=== PATIENT | female | born 1975 | race Caucasian/White ===

== ENCOUNTER 2024-02-20 14:30 | Inpatient (IN) | payer MEDICAID, OTHER ==
[2024-02-20] MEDS ORDERED: MAG HYDROX/AL HYDROX/SIMETH 355 ML BOTTLE PO PRN (15:12)
[2024-02-20] MEDS ORDERED: ACETAMINOPHEN TAB 325 MG TAB PO PRN (15:12)
[2024-02-20] MEDS ORDERED: LORazepam 2 MG/ML INJ IM PRN (15:12)
[2024-02-20] MEDS ORDERED: ZIPRASIDONE 20 MG VIAL IM PRN (15:12)
[2024-02-20] MEDS ORDERED: MAGNESIUM HYDROXIDE 2,400 MG/30 ML CUP PO PRN (15:12)
[2024-02-20] MEDS ORDERED: ZIPRASIDONE 20 MG CAP PO PRN (15:19)
[2024-02-20] MEDS: LORazepam 1 MG TAB PO PRN (21:55)
[2024-02-20] MEDS: traZODone HCL 50 MG TAB PO PRN (21:55)
[2024-02-20] MEDS: NICOTINE 14MG/24HR PATCH TRANSDERM SCH (23:46)
[2024-02-21 07:50] LABS: Basophils # (A) 0.1 k/uL (0-0.2); Basophils % (A) 1 %; Eosinophils # (A) 0.3 k/uL (0-0.7); Eosinophils % (A) 2 %; HCT 40.8 % (34.0-46.0); Lymphocytes # (A) 3.5 k/uL (1.0-4.8); Lymphocytes % (A) 24 %; MCH 25.2 pg (25.0-35.0); MCHC 31.9 g/dL (31.0-37.0); Mean Platelet Volume 6.4; Monocytes # (A) 0.5 k/uL (0-1.0); Monocytes % (A) 3 %; Neutrophils % (A) 69 %; Platelet Count 487 k/uL (150-450); RBC 5.17 m/uL (3.80-5.40); WBC 14.6 k/uL (3.8-10.6)
[2024-02-21 08:17] LABS: ALT 21 U/L (4-34); African American GFR (CKD) 86 (>60 ml/min/1.73 sqM); Anion Gap 8 mmol/L; Bilirubin, Delta 0.4 mg/dL (0.0-0.2); Bilirubin,Unconjugated 0.4 mg/dL (0.0-1.1); Blood Urea Nitrogen 11 mg/dL (7-17); Calcium 9.3 mg/dL (8.4-10.2); Carbon Dioxide 27 mmol/L (22-30); Chloride 101 mmol/L (98-107); Glucose 112 mg/dL (74-99); Non-African American GFR(CKD) 74 (>60 ml/min/1.73 sqM); Sodium 136 mmol/L (137-145)
[2024-02-21 08:19] LABS: AST 38 U/L (14-36); Albumin 4.5 g/dL (3.5-5.0); Alkaline Phosphatase 95 U/L (38-126); Potassium 5.1 mmol/L (3.5-5.1); Total Bilirubin 0.8 mg/dL (0.2-1.3); Total Protein 7.7 g/dL (6.3-8.2)
[2024-02-21] MEDS ORDERED: NICOTINE 14MG/24HR PATCH TRANSDERM SCH (09:00)
--- NOTE | 2024-02-21 09:29 | XR ---
EXAMINATION TYPE: XR chest 1V portable DATE OF EXAM: 02/21/2024 9:23 AM COMPARISON: None CLINICAL INDICATION: Female, 48 years old with history of shortness of breath; [facility] TECHNIQUE: XR chest 1V portable Frontal view of the chest. FINDINGS: Lungs/Pleura: There is no evidence of pleural effusion, focal consolidation, or pneumothorax. Pulmonary vascularity: Unremarkable. Heart/mediastinum: Cardiomediastinal silhouette is unremarkable. Musculoskeletal: No acute osseous pathology. IMPRESSION: No acute cardiopulmonary disease/process. [facility], , 02/21/2024 9:27 AM
[2024-02-21] MEDS: IBUPROFEN 600 MG TAB PO PRN (09:51)
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
[2024-02-21 15:40] LABS: Chol/HDL Ratio 5.06 Ratio; LDL Cholesterol,Calculated 124.3 mg/dL (0.0-131.0)
[2024-02-21] MEDS: hydrOXYzine pamoate 25 MG CAP PO PRN (18:50)
[2024-02-21] MEDS: MELATONIN 5 MG TABLET PO SCH (20:12)
[2024-02-21] MEDS: SERTRALINE 50 MG TAB PO SCH (20:12)
--- NOTE | 2024-02-22 08:50 | P.MDCNMH ---
History of Present Illness H&P Date: 02/21/24 This is a 48-year-old female who presented to the [facility] emergency department and sent over to here [facility] psychiatry for mental health admission and evaluation. Patient presented with intentional overdose of taking approximately 50-60 of her medications and initially went to the ICU at [facility]. Patient was given charcoal on admission there. On exam patient is lethargic although arousable and answering questions and following commands appropriately. Patient denies any chest pain, shortness of breath just reports feeling fatigued. Patient has been instructed and encouraged to follow with psychiatry and continue medication compliance along with group therapy sessions. Patient follows with Dr. Pan in the outpatient setting with a past medical history of anxiety and depression. Patient reports she smokes and denies any illicit drug use or alcohol use at this time. Patient does fatigue easily and falls asleep during conversation. REVIEW OF SYSTEMS: CONSTITUTIONAL: No fever, no malaise, reports of fatigue. HEENT: No recent visual problems or hearing problems. Denied any sore throat. CARDIOVASCULAR: No chest pain, orthopnea, PND, no palpitations, no syncope. PULMONARY: No shortness of breath, no cough, no hemoptysis. GASTROINTESTINAL: No diarrhea, no nausea, no vomiting, no abdominal pain. NEUROLOGICAL: No headaches, no weakness, no numbness. HEMATOLOGICAL: Denies any bleeding or petechiae. GENITOURINARY: Denies any burning micturition, frequency, or urgency. MUSCULOSKELETAL/RHEUMATOLOGICAL: Denies any joint pain, swelling, or any muscle pain. ENDOCRINE: Denies any polyuria or polydipsia. The rest of the 14-point review of systems is negative. PHYSICAL EXAMINATION: GENERAL: The patient is lethargic although arousable, alert and oriented x3, fatigued and falls asleep easily. Well developed, appears older than stated age, morbidly obese HEENT: Pupils are round and equally reacting to light. EOMI. No scleral icterus. No conjunctival pallor. Normocephalic, atraumatic. No pharyngeal erythema. No thyromegaly. CARDIOVASCULAR: S1 and S2 present. No murmurs, rubs, or gallops. PULMONARY: Diminished breath sounds bilaterally otherwise chest is clear to auscultation, no wheezing or crackles. ABDOMEN: Soft, obese. Nontender, nondistended, normoactive bowel sounds. No palpable organomegaly. MUSCULOSKELETAL: No joint swelling or deformity. EXTREMITIES: No cyanosis, clubbing, or pedal edema. NEUROLOGICAL: Gross neurological examination did not reveal any focal deficits. SKIN: No rashes. Assessment: Severe depression with suicidal ideation with intentional overdose Recent hospitalization at [facility] in ICU and received charcoal for intentional overdose of approximately 50 to 60 pills of her psychiatric medications Leukocytosis, no obvious source of infection, possibly reactive as patient was recently hospitalized and given charcoal prior to coming here Continued ongoing nicotine dependence Morbid obesity with a BMI of 42.6 Poor social support GI prophylaxis Full code Plan: Patient was sent here from [facility] for psychiatric evaluation and mental health admission. Patient with severe depression and suicidal ideation with intentional attempted overdose taking at least 50-60 of her psychiatric medications. Patient intentionally attempting to overdose and per nursing and medical reports, patient freaked out and notified her mother who called 911 and brought her to the hospital Poor historian and will need medical records from [facility] for further information Awaiting follow-up labs Patient with mild leukocytosis although appears slightly reactive as patient is afebrile with no reports of chest pain or shortness of breath, no recent sick contacts no pain or burning with urination and does not appear infectious at all Recommend follow-up labs and monitor WBC Thank you kindly for this consultation. Patient has been instructed to follow-up with Dr. Pan outpatient once discharged from [facility]. The impression and plan of care has been dictated by Dayami Amaro, Nurse Practitioner as directed. Dr. Suzanne MD I have performed a history and examination and MDM of this patient, discussed the same with the dictator, and agree with the dictator's assessment and plan as written ,documented as a scribe. Based on total visit time, I have performed more than 50% of the visit. Past Medical History Past Medical History: No Reported History History of Any Multi-Drug Resistant Organisms: None Reported Past Surgical History: No Surgical Hx Reported Past Anesthesia/Blood Transfusion Reactions: No Reported Reaction Past Psychological History: Depression Smoking Status: Vaper - Past Family History Father Family Medical History: Unable to Obtain Mother Family Medical History: Unable to Obtain Medications and Allergies Allergies Allergy/AdvReac Type Severity Reaction Status Date / Time Sulfa (Sulfonamide Allergy Unknown Verified 02/20/24 15:10 Antibiotics) Physical Exam Vitals: Vital Signs Temp Pulse Resp BP Pulse Ox 02/21/24 06:36 97.8 F 92 16 116/68 95 02/20/24 22:01 98.8 F 113 H 18 133/78 96 Intake and Output 02/20/24 02/21/24 02/21/24 22:59 06:59 14:59 Other: Weight 98.883 kg Cranial Nerve Examination - Cranial Nerves Cranial Nerve I- Olfactory: Intact Cranial Nerve II- Optic: Intact Cranial Nerve III- Oculomotor: Intact Cranial Nerve IV- Trochlear: Intact Cranial Nerve V- Trigeminal: Intact Cranial Nerve - Abducens: Intact Cranial Nerve VII- Facial: Intact Cranial Nerve VIII- Auditory: Intact Cranial Nerve IX- Glossopharyngeal: Intact Cranial Nerve X- Vagus: Intact Cranial Nerve XI- Accessory: Intact Cranial Nerve XII- Hypoglossal: Intact Results CBC & Chem 7: 02/21/24 07:27 02/21/24 07:27 Labs: Abnormal Lab Results - Last 24 Hours (Table) 02/21/24 02/21/24 Range/Units 07:27 07:27 WBC 14.6 H (3.8-10.6) k/uL MCV 79.0 L (80.0-100.0) fL Plt Count 487 H (150-450) k/uL Neutrophils # 10.0 H (1.3-7.7) k/uL Sodium 136 L (137-145) mmol/L Glucose 112 H (74-99) mg/dL Delta Bilirubin 0.4 H (0.0-0.2) mg/dL AST 38 H (14-36) U/L
--- NOTE | 2024-02-22 10:16 | P.PN ---
Progress Note - Text Progress Note Date: 02/22/24 Interval History: Patient was seen today for psychiatric follow-up. She remains disheveled in a ppearance. States that she showered last night. Claims that she only slept about 4 or 5 hours last night. We spoke about increasing the trazodone which she is okay with. She claims that she is feeling a bit labile lately and "orozco". States that she has never tried lithium and would be agreeable to try that today. Claims that she is not going to groups thus far, has been eating fairly. Claims her anxiety is mildly improving since yesterday. At this time is denying any suicidal homicidal ideations intent or plan, denying any auditory or visual hallucinations. Not reporting any side effects at this time. MENTAL STATUS EXAM: General Appearance: Patient appears to be overweight, wearing glasses, disheveled appearance stated age is alert, directable, and attempts to cooperate. Patient appears to have poor hygiene and grooming. Behavior: Patient is seated without any agitated behavior. Vague, improving mildly Speech: Patient's speech is fluent and nonpressured. [place], improving mildly Mood/Affect: Patient reports their mood is a little bit better, still anxious, affect is congruent and constricted. Suicidality/Homicidality: Patient denies having any homicidal ideation intent or plan. Denies any suicidal ideations intent or plan Perceptions: Patient denies any visual hallucinations and denies any auditory hallucinations Though content/process: [place], poverty of content. Memory and concentration: AOX3, grossly intact for the purposes of this session. Judgment and insight: Poor, improving mildly IMPRESSIONS: Suicide attempt by overdose of psychiatric medications Major depressive disorder, without psychotic features anxiety disorder unspecified nicotine dependence PLAN: -Patient is admitted under voluntary status to MHU for stabilization of psychiatric symptoms and safety. Patient has signed adult voluntary form and medication consent and is placed in patient's chart. -Medications : Zoloft 50 mg nightly for mood/anxiety, increase trazodone 100 mg nightly as needed for insomnia, Vistaril as needed for anxiety. Increase melatonin 10 mg qhs for sleep. Added lithium 150 mg twice daily for mood stabilization -Geodon PRN for agitation/aggression -NRT -nicotine patch -SW on board for discharge planning. Encourage patient to participate in groups to work on coping skills. Hopeful for discharge either Tuesday versus early next week once patient is more stable.
[2024-02-22] MEDS: LITHIUM CARBONATE 150 MG CAP PO SCH (12:55)
[2024-02-22] MEDS: MELATONIN 5 MG TABLET PO SCH (20:51)
[2024-02-22] MEDS: traZODone HCL 100 MG TAB PO PRN (20:52)
--- NOTE | 2024-02-23 11:49 | P.PN ---
Progress Note - Text Progress Note Date: 02/23/24 Interval History: Patient was seen today for psychiatric follow-up. Hygiene and grooming mildly improving since yesterday. She is claiming that she has tried to go to some groups. She states that she feels "off" and claims that it might be related to one of her new medications. She suspects that it could be either Vistaril or lithium. We spoke about decreasing lithium to a lower dose at nighttime which she is okay to try. Also claims that she did not sleep well last night. She also did state that she kept her nicotine patch on through the night which she will try to take off tonight. Claims that her appetite is fair at this time. At this time is denying any suicidal homicidal ideations intent or plan, denying any auditory or visual hallucinations. Has been taking her medications. MENTAL STATUS EXAM: General Appearance: Patient appears to be overweight, wearing glasses, dis heveled appearance stated age is alert, directable, and attempts to cooperate. Patient appears to have improving mildly hygiene and grooming. Behavior: Patient is seated without any agitated behavior. Mildly more pleasant today Speech: Patient's speech is fluent and nonpressured. [place], improving mildly Mood/Affect: Patient reports their mood is a little bit better, still anxious, affect is congruent and constricted. Improving mildly Suicidality/Homicidality: Patient denies having any homicidal ideation intent or plan. Denies any suicidal ideations intent or plan Perceptions: Patient denies any visual hallucinations and denies any auditory hallucinations Though content/process: [place], poverty of content. Memory and concentration: AOX3, grossly intact for the purposes of this session. Judgment and insight: Poor, improving mildly IMPRESSIONS: Suicide attempt by overdose of psychiatric medications Major depressive disorder, without psychotic features anxiety disorder unspecified nicotine dependence PLAN: -Patient is admitted under voluntary status to MHU for stabilization of psychiatric symptoms and safety. Patient has signed adult voluntary form and medication consent and is placed in patient's chart. -Medications : Increase Zoloft 100 mg nightly for mood/anxiety, trazodone 100 mg nightly as needed for insomnia, Vistaril as needed for anxiety. melatonin 10 mg qhs for sleep. Decrease lithium 150 mg nightly for mood stabilization. Resume BuSpar 15 mg twice daily for anxiety. -Geodon PRN for agitation/aggression -NRT -nicotine patch -SW on board for discharge planning. Encourage patient to participate in groups to work on coping skills. Hopeful for discharge early next week once patient is more stable.
[2024-02-23] MEDS: busPIRone HCl 5 MG TAB PO SCH (12:12)
[2024-02-23] MEDS: LITHIUM CARBONATE 150 MG CAP PO SCH (20:27)
[2024-02-23] MEDS: SERTRALINE 100 MG TAB PO SCH (20:27)
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
--- NOTE | 2024-02-25 19:11 | P.PN ---
Progress Note - Text Interval History: Patient was seen at the bedside and was directable and agreeable to speak with business writer. She describes her mood as "blah" today and does not feel like the medication is working today. She explained that she has been feeling anxiety and woke from sleep very early in the morning and did not sleep as well overnight. She continues to feel hopeful that things will improve but is wondering if anything else can be done to improve her sleep. We discussed that recovery is not always linear and that there may be days when she does not feel as robust of an improvement in her mood, but it does not mean that she is going backwards. At this time patient denies any suicidal or homicidal ideations, intent or plan. Patient denies any auditory, visual hallucinations and denies any paranoia or delusions. Patient denies any side effects from the medications at this point and has been compliant with meds. Mental Status Exam: General Appearance: Patient appears to be stated age is alert, directable, and cooperative. Behavior: Patient is calmly resting without any agitated behavior. Speech: Patient's speech is fluent and nonpressured. Mood/Affect: Mood is "blah", affect is congruent and constricted. Suicidality/Homicidality: Patient denies having any suicidal or homicidal ideation intent or plan. Perceptions: Patient denies any visual hallucinations and denies any auditory hallucinations Though content/process: There is no evidence of any delusional thought content and thought process is linear and goal-directed. Memory and concentration: AOX3, grossly intact for the purposes of this session Judgment and insight: Improving mildly ASSESSMENT: Suicide attempt by overdose of psychiatric medications Major depressive disorder, without psychotic features anxiety disorder unspecified nicotine dependence PLAN: -Patient is admitted under voluntary status to MHU for stabilization of psychiatric symptoms and safety. Patient has signed adult voluntary form and medication consent and is placed in patient's chart. -Medications: - Continue Zoloft 100 mg nightly for mood/anxiety - Increase Trazodone to 150 mg nightly as needed for insomnia (will trial higher dose due to ongoing insomnia issues) - Continue Vistaril as needed for anxiety - Continue Melatonin 10 mg qhs for sleep - Continue lithium 150 mg nightly for mood stabilization. - Continue Buspar 15 mg twice daily for anxiety. -Continue Geodon PRN for agitation/aggression -NRT -nicotine patch -SW on board for discharge planning. Encourage patient to participate in groups to work on coping skills. Hopeful for discharge early next week once patient is more stable. She is interested in outpatient follow-up and would like to get her medication filled before leaving the hospital.
[2024-02-25] MEDS: traZODone HCL 50 MG TAB PO PRN (21:12)
[2024-02-26] MEDS: SERTRALINE 100 MG TAB PO SCH (10:35)
[2024-02-26] MEDS: busPIRone HCl 5 MG TAB PO SCH (15:44)
--- NOTE | 2024-02-26 17:20 | P.PN ---
Progress Note - Text Interval History: Patient was seen at the bedside and was directable and agreeable to speak with information writer in the office. He describes her mood as "better" today. She feels that she is having a better day overall. She has noticed that she is feeling very nauseous at night and we reviewed her medication timing together and most of her medicines are timed at night. We discussed the plan together to move her sertraline to morning and adjust the timing of her BuSpar so that she takes the morning dose and an early evening dose which distributes the medication throughout the day hopefully helping to address the nausea. At this time patient denies any suicidal or homicidal ideations, intent or plan. Patient denies any auditory, visual hallucinations and denies any paranoia or delusions. Patient denies any side effects from the medications at this point and has been compliant with meds. Mental Status Exam: General Appearance: Patient appears to be stated age is alert, directable, and cooperative. Behavior: Patient is awake and seated without any agitated behavior. Speech: Patient's speech is fluent and nonpressured. Mood/Affect: Mood is "better today", affect is congruent and constricted. Suicidality/Homicidality: Patient denies having any suicidal or homicidal ideation intent or plan. Perceptions: Patient denies any visual hallucinations and denies any auditory hallucinations Though content/process: There is no evidence of any delusional thought content and thought process is linear and goal-directed. Memory and concentration: AOX3, grossly intact for the purposes of this session Judgment and insight: Improving mildly ASSESSMENT: Suicide attempt by overdose of psychiatric medications Major depressive disorder, without psychotic features anxiety disorder unspecified nicotine dependence PLAN: -Patient is admitted under voluntary status to MHU for stabilization of psychiatric symptoms and safety. Patient has signed adult voluntary form and medication consent and is placed in patient's chart. -Medications: - Continue Zoloft 100 mg for mood/anxiety (moved this medication to morning due to patient's concern for nausea at bedtime) - Increase Trazodone to 150 mg nightly as needed for insomnia (will trial higher dose due to ongoing insomnia issues) - Continue Vistaril as needed for anxiety - Continue Melatonin 10 mg qhs for sleep - Continue lithium 150 mg nightly for mood stabilization. - Continue Buspar 15 mg twice daily for anxiety. (adjusted timing due to nausea) -Continue Geodon PRN for agitation/aggression -NRT -nicotine patch -SW on board for discharge planning. Encourage patient to participate in groups to work on coping skills. Hopeful for discharge early next week once patient is more stable. She is interested in outpatient follow-up and would like to get her medication filled before leaving the hospital.
[2024-02-27 08:20] VITALS: BP 108/65; PULSE 86; RESP 18; TEMP 98.8
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
== END 2024-02-27 14:35 | disposition home or self-care (01) | DRG 918 ==
LOC: 3MHU 21:47
PROVIDERS: ADMIT Psychiatry & Neurology Psychiatry; ATTEND Psychiatry & Neurology Psychiatry
DX: T43.592A Poisoning by other antipsychotics and neuroleptics, intentional self-harm, initial encounter (principal); Z68.41 Body mass index [BMI] 40.0-44.9, adult; F17.210 Nicotine dependence, cigarettes, uncomplicated; F32.9 Major depressive disorder, single episode, unspecified; F41.9 Anxiety disorder, unspecified; G47.00 Insomnia, unspecified; Z79.899 Other long term (current) drug therapy; Z91.51 Personal history of suicidal behavior; Z88.2 Allergy status to sulfonamides; Z71.6 Tobacco abuse counseling; E66.01 Morbid (severe) obesity due to excess calories
CPT/HCPCS: 71045; 80053; 80061; 82248; 83036; 84443; 85025